=== PATIENT | male | born 2000 ===

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

== ENCOUNTER → 2020-03-18 | Outpatient (CLI) | payer OTHER | END | disposition home or self-care (01) | LOC: LAB SHORT 21:40 → LAB 21:40 | DX: J02.9 Acute pharyngitis, unspecified (principal) | CPT/HCPCS: 87070 ==

== ENCOUNTER 2022-10-09 21:09 | Emergency (ER) | payer BC ==
[~2022-10-09] VITALS: Ht 180.3 cm; Wt 83.9 kg
[2022-10-09 21:18] VITALS: BP 138/98
== END 2022-10-09 22:55 | disposition home or self-care (01) ==
LOC: ER 21:09
DX: S82.62XA Displaced fracture of lateral malleolus of left fibula, initial encounter for closed fracture (principal); S82.832A Other fracture of upper and lower end of left fibula, initial encounter for closed fracture; W22.8XXA Striking against or struck by other objects, initial encounter
CPT/HCPCS: 29515; 73610; 99283-25; A9270